=== PATIENT | female | born 2000 | race American Indian/Alaskan Native ===

== ENCOUNTER 2020-11-21 19:07 | Emergency (ER) | payer SELFPAY ==
[2020-11-21] MEDS ORDERED: LIDOCAINE (1%) 10 MG/1 ML VIAL 20 ML MDV INFILTRATI ONE (20:56)
--- NOTE | 2020-11-21 20:56 | Event Note ---
ED Screening Note Date of service: 11/21/20 Time: 20:55 ED Screening Note: Patient presents to the ER today complaint of a tender swollen area to the lower vaginal area. Onset 2 weeks ago. She denies any drainage. This initial assessment/diagnostic orders/clinical plan/treatment(s) is/are sub ject to change based on patients health status, clinical progression and re- assessment by fellow clinical providers in the ED. Further treatment and workup at subsequent clinical providers discretion. Patient/guardian urged not to elope from the ED as their condition may be serious if not clinically assessed and managed. Initial orders include: I&D/lidocaine
[2020-11-21] MEDS ORDERED: CLINDAMYCIN 300 MG CAP PO ONE (23:11)
[2020-11-21] MEDS ORDERED: SULFAMETHOXAZOLE/TRIMETHOPRIM 800/160MG DS TAB PO ONE (23:11)
[2020-11-21] MEDS ORDERED: HYDROcodone/ACETAMINOPHEN 7.5-325MG TAB PO ONE (23:11)
[2020-11-21] MEDS ORDERED: ONDANSETRON 4 MG ODT TAB PO ONE (23:11)
[2020-11-22] MEDS ORDERED: LIDOCAINE (1%) 10 MG/1 ML VIAL 20 ML MDV INFILTRATI ONE (00:35)
--- NOTE | 2020-11-22 03:15 | Emergency Department Report ---
ED General Adult HPI - General Chief complaint: Urogenital-Female Stated complaint: VAGINAL NODULE/NODULE UNDER ARM PITS Source: patient Mode of arrival: Ambulatory Limitations: No Limitations - History of Present Illness Initial comments: Patient is a nulliparous 20-year-old -[place] female with a history of asthma and morbid obesity presents to the ED with complaint of acute onset persistent painful swollen maculopapular rash on suprapubic area for the last 3 weeks, worse in the last 2 days. Patient states that the pain is worse with any movement or whenever she wears her clothes. Patient states that she has previously experiencing the rashes but on her bilateral axilla which usually resolve on their own. Patient denies fever, chills, nausea, vomiting, traumatic injury, numbness and tingling or weakness of lower extremities bilaterally, abdominal pain, dysuria, urinary frequency and urgency, vaginal bleeding or vaginal discharge and low back pain. MD Complaint: suprapubic painful swollen rash -: Sudden, week(s) (2) Location: genitals (suprapubic) Radiation: non-radiation Severity scale (0 -10): 2 Quality: aching, sharp Consistency: constant Improves with: none Worsens with: movement Associated Symptoms: denies other symptoms, rash (Swollen, painful rash on suprapubic area). denies: confusion, chest pain, cough, diaphoresis, fever/chills, headaches, loss of appetite, malaise, nausea/vomiting, shortness of breath, syncope Treatments Prior to Arrival: none - Related Data Previous Rx's Medication Instructions Recorded Last Taken Type Acetaminophen/Codeine [Tylenol 1 tab PO Q6H PRN #10 tab 11/22/20 Unknown Rx /Codeine # 3 tab] Ibuprofen [Motrin] 800 mg PO Q8HR PRN #30 tablet 11/22/20 Unknown Rx Sulfamethoxazole/Trimethoprim 1 each PO Q12H #20 tablet 11/22/20 Unknown Rx [Bactrim DS TAB] Allergies Allergy/AdvReac Type Severity Reaction Status Date / Time No Known Allergies Allergy Unverified 11/21/20 20:30 ED Review of Systems ROS: Stated complaint: VAGINAL NODULE/NODULE UNDER ARM PITS Other details as noted in HPI Constitutional: denies: chills, fever Eyes: denies: eye pain, eye discharge, vision change ENT: denies: ear pain, throat pain Respiratory: denies: cough, shortness of breath, wheezing Cardiovascular: denies: chest pain, palpitations Endocrine: no symptoms reported Gastrointestinal: denies: abdominal pain, nausea, diarrhea Genitourinary: denies: urgency, dysuria, discharge Musculoskeletal: denies: back pain, joint swelling, arthralgia Skin: rash (Swollen, painful suprapubic rash). denies: lesions Neurological: denies: headache, weakness, paresthesias Psychiatric: denies: anxiety, depression Hematological/Lymphatic: denies: easy bleeding, easy bruising ED Past Medical Hx - Past Medical History Previous Medical History?: Yes Hx Asthma: Yes Additional medical history: ADHD - Social History Smoking Status: Never Smoker - Medications Home Medications: Home Medications Medication Instructions Recorded Confirmed Last Taken Type Acetaminophen/Codeine [Tylenol 1 tab PO Q6H PRN #10 tab 11/22/20 Unknown Rx /Codeine # 3 tab] Ibuprofen [Motrin] 800 mg PO Q8HR PRN #30 tablet 11/22/20 Unknown Rx Sulfamethoxazole/Trimethoprim 1 each PO Q12H #20 tablet 11/22/20 Unknown Rx [Bactrim DS TAB] ED Physical Exam - General Limitations: No Limitations General appearance: alert, in no apparent distress - Head Head exam: Present: atraumatic, normocephalic, normal inspection - Eye Eye exam: Present: normal appearance, PERRL, EOMI Pupils: Present: normal accommodation - ENT ENT exam: Present: normal exam, normal orophraynx, mucous membranes moist, TM's normal bilaterally, normal external ear exam - Neck Neck exam: Present: normal inspection, full ROM - Respiratory Respiratory exam: Present: normal lung sounds bilaterally. Absent: respiratory distress, wheezes, rales, rhonchi, chest wall tenderness, accessory muscle use, decreased breath sounds, prolonged expiratory - Cardiovascular Cardiovascular Exam: Present: normal rhythm, tachycardia, normal heart sounds. Absent: systolic murmur, diastolic murmur, rubs, gallop - GI/Abdominal GI/Abdominal exam: Present: soft, normal bowel sounds. Absent: distended, tenderness, guarding, rebound, hyperactive bowel sounds, hypoactive bowel sounds, organomegaly - External exam: Present: swelling, other (Severely tender, swollen fluctuant maculopapular rash on suprapubic area) Bi-manual exam: Present: other (Female ED pollution control technician Ms. Holloway present during the procedure) - Extremities Exam Extremities exam: Present: normal inspection, full ROM, normal capillary refill - Back Exam Back exam: Present: normal inspection, full ROM. Absent: tenderness, CVA tenderness (R), CVA tenderness (L), muscle spasm, paraspinal tenderness, vertebral tenderness - Neurological Exam Neurological exam: Present: alert, oriented X3, CN II-XII intact, normal gait, reflexes normal - Psychiatric Psychiatric exam: Present: normal affect, normal mood - Skin Skin exam: Present: warm, dry, intact, normal color, rash (Swollen, severely tender maculopapular fluctuant rash on suprapubic area). Absent: erythema ED Course Vital Signs 11/21/20 11/21/20 11/22/20 20:27 23:21 00:21 Temperature 99.0 F Pulse Rate 113 H Respiratory 18 16 16 Rate Blood Pressure 126/80 Blood Pressure [Left] O2 Sat by Pulse 98 Oximetry 11/22/20 00:26 Temperature 98.3 F Pulse Rate 100 H Respiratory 18 Rate Blood Pressure Blood Pressure 129/66 [Left] O2 Sat by Pulse 99 Oximetry ED Medical Decision Making - Medical Decision Making This is a nulliparous 20-year-old -[place] female with a history of asthma and morbid obesity presents to the ED with complaint of acute onset persistent painful swollen maculopapular rash on suprapubic area for the last 3 weeks, worse in the last 2 days. Patient states that the pain is worse with any movement or whenever she wears her clothes. Patient states that she has previously experiencing the rashes but on her bilateral axilla which usually resolve on their own. In the ED, patient is alert and oriented x3 and is not in any distress. Patient is however tachycardic and afebrile in triage and appears to be in pain during the physical exam. Patient was treated for pain in the ED and also given initial oral antibiotics. The area was cleaned with normal saline and Betadine solution applied to fully clean the area and sterilize it. Lidocaine 1% solution was infiltrated in the area and when anesthesia was fully achieved, the swollen fluctuant rash was incised and drained and take copious purulent discharge drained from the wound mixed with blood. The wound was then debrided extensively with normal saline and loculations were broken with hemostat. The wound was then packed with iodoform quarter inch gauze and the wound dressed appropriately with 4 x 4 gauzes and Tegaderm. Patient tolerated the procedure well. On reevaluation, patient's pain is well controlled medications. Tachycardia also resolved with medication. Patient was therefore discharged home on pain medications and oral antibiotics and advised to follow-up with her primary care physician in 7 to 10 days for reevaluation. Patient was advised to otherwise return to the ED in 2 days for wound recheck and packing removal. Patient was otherwise advised return to the ED immediately if symptoms get worse. - Differential Diagnosis Acute folliculitis; cutaneous abscess; cellulitis; Critical care attestation.: If time is entered above; I have spent that time in minutes in the direct care of this critically ill patient, excluding procedure time. ED Disposition Clinical Impression: Acute folliculitis, Cellulitis of suprapubic region Cutaneous abscess Qualifiers: Site of cutaneous abscess: other site Qualified Code(s): L02.818 - Cutaneous abscess of other sites Disposition: TO HOME OR SELFCARE Is pt being admited?: No Does the pt Need Aspirin: No Condition: Stable Instructions: Skin Abscess, [id number], Cellulitis, Adult, [id number], Folliculitis Additional Instructions: Take medications with food, drink plenty of fluids and follow-up with your primary care physician in 7 to 10 days for reevaluation. Return to the ED immediately if symptoms get worse. Otherwise return to the ED in 2 days for wound recheck and packing removal. Prescriptions: Sulfamethoxazole/Trimethoprim [Bactrim DS TAB] 1 each PO Q12H #20 tablet Ibuprofen [Motrin] 800 mg PO Q8HR PRN #30 tablet PRN Reason: Pain , Severe (7-10) Acetaminophen/Codeine [Tylenol /Codeine # 3 tab] 1 tab PO Q6H PRN #10 tab PRN Reason: Pain , Severe (7-10) Referrals: [facility] [Provider Group] - 7-10 days VLAD JULIEN NP [Primary Care Provider] - 7-10 days Time of Disposition: 03:16 Print Language: YI
[2020-11-22 03:46] VITALS: BP 122/65
== END 2020-11-22 03:49 | disposition home or self-care (01) ==
LOC: ED 19:07
DX: L03.319 Cellulitis of trunk, unspecified (principal); L73.9 Follicular disorder, unspecified; L02.818 Cutaneous abscess of other sites; J45.909 Unspecified asthma, uncomplicated; E66.01 Morbid (severe) obesity due to excess calories; Z79.899 Other long term (current) drug therapy; Z68.42 Body mass index [BMI] 45.0-49.9, adult
CPT/HCPCS: 99282; Q0162